=== PATIENT | female | born 1940 | race Caucasian/White ===

== ENCOUNTER → 2023-05-10 | Outpatient (CLI) | payer BC, MEDICARE ==
[~2023-05-10] MED LIST: BRIN8DRO OU; CALCIUM CITRATE; DESL1TBM PO; DULO30CA2 PO; FLUTICASONE; LETR2.5T7 PO; MELO-108 PO; MULT-1203 PO; THYR90TA PO; XALA2.5OS OU
== END | disposition home or self-care (01) ==
LOC: SHCH 14:07
PROVIDERS: ATTEND Student in an Organized Health Care Education/Training Program
DX: I35.1 Nonrheumatic aortic (valve) insufficiency (principal); I51.7 Cardiomegaly
CPT/HCPCS: 93306

== ENCOUNTER → 2024-04-11 | Outpatient (CLI) | payer BC, MEDICARE ==
[~2024-04-11] MED LIST changes: +LORA10CA PO; +TOLT2TAB20 PO; +VYZULTA OU; +ZOLP10TA2 PO
--- NOTE | 2024-04-11 15:35 | HMCIMG ---
CT CHEST W/O CONTRAST REASON: Other nonspecific abnormal finding of lung field COMPARISON: None. TECHNIQUE: Multiple sequential axial images of the chest were obtained from the thoracic inlet through the upper pole of the kidneys without intravenous contrast administration. FINDINGS: There is a cavitating lesion present in the base of the right upper lobe, adjacent to the superior aspect of the major fissure. This is present peripherally. There is a 2.1 x 4.7 cm mass with a pleural base. This contains a 2 cm cavitation. There are 2 adjacent soft tissue nodules, one is just anterior to the cavitation and measures 1.8 cm, there is a smaller 9 mm nodule present. There are several other very small nodular densities in the adjacent right upper lobe parenchyma as well. These findings are nonspecific. Cavitating neoplasm is a possibility. Fungal infection could cause this appearance. Tuberculosis is a possibility as well. There is mild bibasilar bronchiectasis. There is atelectasis or infiltrate in the posterior inferior right lung base. There are no other areas of appearing focal infiltrate. There is no hilar or mediastinal lymphadenopathy. Chest wall structures appear normal. Visualized upper abdominal structures are unremarkable. IMPRESSION: 1. Focal masses in the base of the right upper lobe, laterally, with a pleural connection, there is a 2 cm cavitation present within the largest nodule. 2. Findings are not specific, cavitating neoplasm is possible but a fungal in infection or tuberculosis infection could cause this appearance as well. 3. There is bibasilar bronchiectasis, there is confluent infiltrate in the posterior inferior right lower lobe as well. CT was performed with one or more following dose reduction techniques: automated exposure control, adjustment of the mA and kv according to patient's size, or use of a iterative reconstruction technique.
== END | disposition home or self-care (01) ==
LOC: RAH 14:34
PROVIDERS: ATTEND Family Medicine
DX: J47.9 Bronchiectasis, uncomplicated (principal); R91.1 Solitary pulmonary nodule; J98.11 Atelectasis; J98.4 Other disorders of lung; R91.8 Other nonspecific abnormal finding of lung field
CPT/HCPCS: 71250

== ENCOUNTER → 2024-10-24 | Outpatient (CLI) | payer BC, MEDICARE ==
[~2024-10-24] MED LIST changes: +GADOTERATE MEGLUMINE 10 MMOL/20 ML VIAL IV ONE; +GADOTERATE MEGLUMINE 5 MMOL/10 ML VIAL IV ONE; +ZOLP-685 PO; -ZOLP10TA2 PO
[2024-10-24 08:38] LABS: CREATININE 0.8 mg/dL (0.5-1.0); GLOMERULAR FILTR. RATE CALC 74.0 mL/min (>90); UREA NITROGEN, BLOOD 24.0 mg/dL (7-18)
--- NOTE | 2024-10-26 20:57 | HMCIMG ---
EXAM: MR Brain and IAC Without and with IV Contrast. CLINICAL HISTORY: Other specified hearing loss. TECHNIQUE: Post contrast multiplanar multi-sequence MRI of the brain and IAC. COMPARISON: None provided. FINDINGS: BRAIN: Discrete T2, FLAIR hyperintense signal noted in the white matter of bilateral cerebral hemispheres, likely chronic small vessel ischemic changes. No acute intracranial abnormality, specifically cortical infarction, hemorrhage, mass, or mass effect. No hydrocephalus. No abnormal extra-axial fluid collection is present. The marrow signal within the skull base and calvarium is intact. The paranasal sinuses are clear. IAC: The cerebellopontine angles are CSF-filled. The internal auditory canal bilaterally is normal in signal. The seventh and eighth nerve bundles are intact. Inner ear structures are normal. Fluid signal noted in the right mastoid air cells, likely reactive effusion versus mastoiditis. Left mastoid air cells demonstrate no abnormal signal. IMPRESSION: No acute intracranial abnormality or mass. The bilateral cerebellopontine angles, 7th and 8th cranial nerve bundles, internal auditory canals, and inner ear structures are within normal limits. Mild chronic small vessel ischemic changes. Fluid signal in the right mastoid air cells, likely reactive effusion versus mastoiditis. /[place]
== END | disposition home or self-care (01) ==
LOC: RAH 07:31
PROVIDERS: ATTEND Otolaryngology
DX: I67.82 Cerebral ischemia (principal); H91.8X3 Other specified hearing loss, bilateral
CPT/HCPCS: 70553; 84520; 82565; 36415; A9575